=== PATIENT | male | born 1990 | race Caucasian/White ===

== ENCOUNTER 2017-02-27 18:24 | Emergency (ER) | payer SELFPAY ==
[2017-02-27] MEDS ORDERED: ADACEL TDaP IM ONE ×2 (18:31→18:33)
[2017-02-27 18:37] VITALS: BP 146/92; BMI 33.9
[2017-02-27] MEDS ORDERED: DEMEROL INJ IM ONE (19:09)
[2017-02-27] MEDS ORDERED: DEMEROL INJ ONE (19:10)
--- NOTE | 2017-02-27 19:35 | DR.GENAD ---
HPI - PCP Primary Care Physician: nfd - Complaint/Symptoms Chief Complaint Doctors Comments: History as stated. Injury 2nd digit of right hand DIP joint, quality sharp, severity mild, duration less than two hours; modifying factor movement. Chief Complaint:: pt cut finger on a montejo of a car lt hand 2nd digit pt slammed the montejo on his arm and hand - Source History Provided: Patient - Mode of Arrival Mode of Arrival: Ambulatory - Timing Onset of Chief Complaint: 02/27/17 PMH - PMH Past Medical History: Yes Past Medical History: Asthma Past Surgical History: Yes Surgical History: Ortho Surgery, Tonsillectomy - Family History History of Family Medical Conditions: Yes Family Medical History: Diabetes Mellitus, Heart Failure, Hypertension - Social History Does any household member use tobacco: No Alcohol Use: None Do you use any recreational Drugs:: No Lives With: Family Lives Where: Home - infectious screening In the last 2 months have you had wt loss of >10#?: NO Have you had fever, night sweats or hemotysis?: No Have you traveled outside the country in the last 6 months?: No Isolation: Standard ROS - Review of Systems Constitutional: negative: Diaphoresis Eyes: No Symptoms Reported ENTM: No Symptoms Reported Respiratoy: No Symptoms Reported Cardiovascular: No Symptoms Reported Gastrointestinal/Abdominal: No Symptoms Reported, Abdominal Pain Genitourinary: No Symptoms Reported Neurological: No Symptoms Reported Musculoskeletal: No Symptoms Reported Integumentary: No Symptoms Reported Hematologic/Lymphatic: No Symptoms Reported Endocrine: No Symptoms Reported Psychiatric: No Symptoms Reported All Other Systems: Reviewed and Negative PE - Vital Signs Vitals: Temperature 98.6 F Pulse Rate 76 Respiratory Rate 18 Blood Pressure [Right Arm] 148/80 Blood Pressure 146/92 O2 Sat by Pulse Oximetry 100 - General Limitations: No Limitations General Appearance: Alert, In No Apparent Distress - Head Head Exam: Normal Inspection, Atraumatic - Eyes Eye exam: EOMI - ENT ENT Exam: Normal Exam External Ear Exam: Normal External Inspection TM/Canal Exam: Bilateral Normal Nose Exam: Normal Nose Exam Mouth Exam: Normal Inspection Throat Exam: Normal Inspection - Neck Neck Exam: Normal Inspection, Full ROM - Chest Chest Inspection: Normal Inspection, Symmetric Chest Wall Rise - Respiratory Respiratory Exam: Normal Lung Sounds Bilat Respiratory Exam: Bilateral Clear to Auscultation - Cardiovascular Cardiovascular Exam: Regular Rate, Normal Rhythm - Abdominal Exam Abdominal Exam: Normal Inspection, Normal Bowel Sounds Abdominal Tenderness: negative: RUQ, RLQ, LUQ, LLQ, Epigastrium, Suprapubic, Diffuse, Mild, Moderate, Severe, Other - Extremities Extremities Exam: Normal Inspection, Other (superficial laceration of 2nd DIP joint of right hand) - Back Back Exam: Normal Inspection - Neurologic Neurological Exam: Alert, Oriented X3, CN II-XII Intact - Psychiatric Psychiatric Exam: Normal Affect - Skin Skin Exam: Warm, Dry, Intact Course - Treatment Treatment: Dermabone, splint - Reevaluation 1st: Improved Procedures - Laceration/Wound Repair Right 2nd Digit Wound Length (cm): 2 Wound's Depth, Shape: Superficial, Linear Wound Explored: no foreign body removed Betadine Prep?: Yes Wound Repaired With: Dermabond - Diagnosis Discharge Problem: Finger laceration Qualifiers: Encounter type: initial encounter Finger: index finger Damage to nail status: without damage Foreign body presence: without foreign body Laterality: right Qualified Code(s): S61.210A - Laceration without foreign body of right index finger without damage to nail, initial encounter - Discharge Plan Condition: Stable - Follow ups/Referrals Follow ups/Referrals: N[facility],None [Primary Care Provider] - 3 days - Instructions
--- NOTE | 2017-02-27 22:18 | RAD ---
HISTORY: Trauma, 2nd digit laceration Study: Three views right hand Comparison: None Findings: Normal alignment. No acute fracture or dislocation. There is a laceration seen along the volar aspect of the distal 2nd digit. No radiopaque foreign body identified. IMPRESSION: 1. Laceration of the distal 2nd digit without acute osseous abnormality. Reported By:
--- NOTE | 2017-02-27 22:19 | RAD ---
HISTORY: Slammed hand on car montejo, laceration Study: Two views right forearm Comparison: 01/23/2012 Findings: Normal alignment. No acute fracture or dislocation. The soft tissues are unremarkable. IMPRESSION: 1. No acute osseous abnormality. Reported By:
== END 2017-02-27 20:03 | disposition home or self-care (01) ==
LOC: ER 18:27
PROC: 0XQN0ZZ Repair Right Index Finger, Open Approach (ICD-10-PCS; principal; 2017-02-27)
DX: S61.210A Laceration without foreign body of right index finger without damage to nail, initial encounter (principal); W45.8XXA Other foreign body or object entering through skin, initial encounter; Y92.9 Unspecified place or not applicable
CPT/HCPCS: 12001; 73090; 73130; 90471; 96372; 99283; J2175